=== PATIENT | female | born 1950 | race Caucasian/White ===

== ENCOUNTER 2017-10-29 10:43 | Day surgery (SDC) | payer MEDICARE, OTHER ==
[~2017-10-29] VITALS: Ht 170.2 cm; Wt 66.7 kg
[~2017-10-29 10:43] MED LIST: ALLEGRA-D 1212 HOUR PO; ASPIRIN ADULT L81 M1 PO; FLEXERIL PO; FLONASE NASAL50 MCG; MECLIZINE25 MG PO; MEDDOSEPAK OR; MEVACOR40 MG PO; MOTRIN400 MG/TAB PO; NO HOME MEDS; WAL-FEX D 1212 HOUR PO; ZPAK PO
[2017-10-29 13:59] VITALS: BP 137/65
== END 2017-10-29 14:08 | disposition home or self-care (01) ==
LOC: ENDO 10:43
PROVIDERS: ATTEND Internal Medicine Gastroenterology
PROC: 0DBN8ZX Excision of Sigmoid Colon, Via Natural or Artificial Opening Endoscopic, Diagnostic (ICD-10-PCS; principal; 2017-10-29)
DX: R19.5 Other fecal abnormalities (principal); K59.00 Constipation, unspecified; D12.5 Benign neoplasm of sigmoid colon; K64.4 Residual hemorrhoidal skin tags; K64.8 Other hemorrhoids; K21.9 Gastro-esophageal reflux disease without esophagitis; E78.00 Pure hypercholesterolemia, unspecified

== ENCOUNTER 2018-03-11 10:33 | Day surgery (SDC) | payer MEDICARE, OTHER ==
[~2018-03-11 10:33] MED LIST changes: -ASPIRIN ADULT L81 M1 PO; +ASPIRIN ADULT L81 MG PO; +MELATIN1 TAB PO; +PAROXETINE10 MG PO; +SINUS MED PO; +VALERIAN PO
[2018-03-11 15:01] VITALS: BP 137/61
== END 2018-03-11 15:17 | disposition home or self-care (01) ==
LOC: ENDO 10:33 → ORM 16:45 → ENDO 16:45 → ORM 17:00 → ENDO 17:00
PROVIDERS: ATTEND Internal Medicine Gastroenterology
PROC: 0DBK8ZX Excision of Ascending Colon, Via Natural or Artificial Opening Endoscopic, Diagnostic (ICD-10-PCS; principal; 2018-03-11)
PROC: 0DBN8ZX Excision of Sigmoid Colon, Via Natural or Artificial Opening Endoscopic, Diagnostic (ICD-10-PCS; 2018-03-11)
DX: K57.31 Diverticulosis of large intestine without perforation or abscess with bleeding (principal); K63.5 Polyp of colon; D17.5 Benign lipomatous neoplasm of intra-abdominal organs; K64.4 Residual hemorrhoidal skin tags; R97.0 Elevated carcinoembryonic antigen [CEA]; K21.9 Gastro-esophageal reflux disease without esophagitis; Z86.010 Personal history of colon polyps

== ENCOUNTER → 2018-04-07 | Outpatient (REF) | payer MEDICARE, OTHER | END | disposition home or self-care (01) | LOC: MRI 08:50 → ULTRASND 09:30 | PROVIDERS: ATTEND Internal Medicine Gastroenterology | DX: R97.0 Elevated carcinoembryonic antigen [CEA] (principal); K83.5 Biliary cyst ==

== ENCOUNTER 2018-08-24 17:49 | Emergency (ER) | payer MEDICARE, OTHER ==
[~2018-08-24] VITALS: Ht 170.2 cm; Wt 66.8 kg
[2018-08-24 19:01] LABS: HEMATOCRIT 36.2 % (37.0-47.0); HEMOGLOBIN 11.9 g/dl (12.0-16.0); IMMATURE GRANULOCYTES 0.5 % (0.0-5.0); MEAN CELL VOLUME 91.4 fL CALC (80.0-100.0); MEAN CORPUSCULAR HGB 30.1 pG CALC (26.0-32.0); MEAN CORPUSCULAR HGB CONC 32.9 g/L CALC (32.0-36.0); NEUT# 15.5 thou/uL (2.00-7.15); RED BLOOD COUNT 3.96 mill/uL (4.20-5.60); RED CELL DISTRI WIDTH 13.3 % (11.5-15.5)
[2018-08-24 19:19] LABS: ALBUMIN 3.9 g/dL (3.2-5.0); ALKALINE PHOSPHATASE 75 u/l (38-126); AMYLASE 63 u/l (30-110); ANION GAP 15 (6-22 (CALC)); BILIRUBIN, TOTAL 0.5 mg/dL (0.0-1.4); BUN 17 mg/dL (8-23); BUN/CREATININE RATIO 39 (12-20 (CALC)); CARBON DIOXIDE 23 mmol/l (22-30); CHLORIDE 105 mmol/l (95-108); CREATININE 0.4 mg/dL (0.5-1.0); GFR > 60 ML/MIN (>=60 (CALC)); GFR FOR AFR.AMER. > 60 ML/MIN (>=60 (CALC)); LIPASE 164 u/l (23-300); POTASSIUM 4.1 mmol/l (3.5-5.1); SGOT/AST 73 u/l (9-36); SODIUM 138 mmol/l (137-146); TOTAL PROTEIN 6.2 g/dL (6.3-8.2)
[2018-08-24 20:34] LABS: URINE BILIRUBIN - DIPSTICK NEGATIVE (NEGATIVE); URINE BLOOD DIPSTICK SMALL (NEGATIVE); URINE COLOR YELLOW; URINE GLUCOSE - DIPSTICK NEGATIVE (NEGATIVE); URINE KETONE 40 mg/dL (NEGATIVE); URINE LEUK ESTERASE NEGATIVE (NEGATIVE); URINE NITRITE - DIPSTICK NEGATIVE (Negative); URINE PROTEIN - DIPSTICK NEGATIVE (NEG-TRACE); URINE SPECIFIC GRAVITY 1.015; URINE UROBILINOGEN - DIPSTICK 0.2 E.U./dL (0.2)
[2018-08-24 20:50] LABS: URINE SQUAMOUS EPITHELIAL CELL FEW EPI/hpf (0-FEW); URINE WBC 0-2 WBC/hpf (0-5)
[2018-08-25 01:10] VITALS: BP 110/54
== END 2018-08-25 01:10 ==
LOC: ED 17:49
PROVIDERS: Emergency Medicine
DX: K83.8 Other specified diseases of biliary tract (principal); G89.18 Other acute postprocedural pain; E78.5 Hyperlipidemia, unspecified; I25.10 Atherosclerotic heart disease of native coronary artery without angina pectoris; K21.9 Gastro-esophageal reflux disease without esophagitis; F17.210 Nicotine dependence, cigarettes, uncomplicated; Z96.89 Presence of other specified functional implants
CPT/HCPCS: Q9967; S0164

== ENCOUNTER → 2018-09-01 | Outpatient (REF) | payer MEDICARE, OTHER ==
[2018-09-01 14:16] LABS: HEMATOCRIT 29.4 % (37.0-47.0); HEMOGLOBIN 9.4 g/dl (12.0-16.0); IMMATURE GRANULOCYTES 0.4 % (0.0-5.0); MEAN CELL VOLUME 94.5 fL CALC (80.0-100.0); MEAN CORPUSCULAR HGB 30.2 pG CALC (26.0-32.0); NEUT# 7.76 thou/uL (2.00-7.15); RED BLOOD COUNT 3.11 mill/uL (4.20-5.60); RED CELL DISTRI WIDTH 14.6 % (11.5-15.5)
== END | disposition home or self-care (01) ==
LOC: LAB 13:32
PROVIDERS: ATTEND Internal Medicine Gastroenterology
DX: R92.1 Mammographic calcification found on diagnostic imaging of breast (principal); R97.0 Elevated carcinoembryonic antigen [CEA]; Z86.010 Personal history of colon polyps

== ENCOUNTER 2020-01-30 06:57 | Day surgery (SDC) | payer MEDICARE, OTHER ==
[~2020-01-30] VITALS: Ht 170.2 cm; Wt 65.8 kg
[~2020-01-30 06:57] MED LIST changes: +ALBUTEROL SUL0.083 % IN; +COQ1030 MG PO; +FLONASE SE27.5 MCG/S; +HM IBUPROFEN200 MG PO; +IPRATROPIU0.5 MG/3 M IN; +IRON325 M1 PO; +MELATONIN5 MG PO; +OMEPRAZOLE DR20 MG PO; +PAIN RELIEF EX500 M1 PO; +PROAIR HFA IN; +SINUS MED; +WELLBUTRIN100 M2 PO
[2020-01-30] MEDS ORDERED: PERCOCET 5/325M1 TAB PO (09:58)
[2020-01-30 10:52] VITALS: BP 117/67
== END 2020-01-30 11:11 | disposition home or self-care (01) ==
LOC: ORM 06:57
PROVIDERS: ATTEND Surgery
PROC: 0JB80ZZ Excision of Abdomen Subcutaneous Tissue and Fascia, Open Approach (ICD-10-PCS; principal; 2020-01-30)
PROC: 0JB90ZZ Excision of Buttock Subcutaneous Tissue and Fascia, Open Approach (ICD-10-PCS; 2020-01-30)
DX: C79.89 Secondary malignant neoplasm of other specified sites (principal); L72.8 Other follicular cysts of the skin and subcutaneous tissue; R91.8 Other nonspecific abnormal finding of lung field; C80.1 Malignant (primary) neoplasm, unspecified; Z11.59 Encounter for screening for other viral diseases
CPT/HCPCS: J0131; J1100